=== PATIENT | male | born 1985 | race Caucasian/White ===

== ENCOUNTER 2017-07-07 18:47 | Emergency (ER) | payer MEDICAID, SELFPAY ==
[2017-07-07 18:48] VITALS: BP 154/92; PULSE 95; RESP 20; TEMP 36.6; O2SAT 100; BMI 27.8
[2017-07-07 19:03] VITALS: BMI 28.0
--- NOTE | 2017-07-07 19:20 | XR_ITS ---
XR chest portable HISTORY: ITS.REASON: chest pain ORDERING PHYSICIAN: Babita Willard MD PATIENT AGE: 31 years COMPARISON: None available FINDINGS: The cardiomediastinal silhouette and pulmonary vascularity are within normal limits. The lungs are clear without infiltrates, suspicious nodules, or pleural effusions. No acute bony abnormalities. IMPRESSION: Negative chest, no acute finding
--- NOTE | 2017-07-07 19:20 | [facility].EDCP ---
ED Disposition Condition on Discharge: Good Time of Disposition: 20:08 - Critical Care Critical Care Time: No <Babita Willard - Last Filed: 07/07/17 19:56> Condition on Discharge: Good Time of Disposition: 21:30 - Critical Care Critical Care Time: No <Seven Coffman - Last Filed: 07/08/17 01:15> Clinical Impression: Atypical chest pain Disposition: Home, Self-Care Instructions: DI for Atypical Chest Pain Additional Instructions: Please follow up with Dr Field within the next 24 hrs for mandatory outpatient re-evaluation!!! Referrals: Dc Mcclain [Primary Care Provider] - Andrew Field MD [Consulting Physician] - Attestation: On 07/07/17, the high probability of a clinically significant, sudden or life threatening deterioration of the following system(s) required my full and direct attention, intervention and personal management. The time I documented below is in addition to time spent performing reported procedures but includes the following listed in this critical care notation. Medical Decision Making - Radiology Data #1 Image(s): Chest Image Reviewed: Yes I reviewed the patient's radiology image Preliminary Findings: Normal/NAD, No Infiltrates Seen, Normal Lung Inflation Aaron (central calcification on left but neg acute noted; nl cardiac silhouette), Normal Heart Size - ECG Data Tracing #1 I reviewed this ECG and interpreted as documented below: ECG initial impression date: 07/07/17 ECG initial impression time: 18:55 Normal Sinus Rhythm: Yes - [place] Inquiry Pt receiving controlled substance: No <Babita Willard - Last Filed: 07/07/17 19:56> - Medical Records Medical records reviewed: Yes: I reviewed the patient's medical records. - Lab Data Lab results reviewed: Yes: I reviewed the patient's lab results. Result diagrams: 07/07/17 19:25 07/07/17 19:25 - Reevaluation(s) Time: 21:20 <Seven Coffman - Last Filed: 07/08/17 01:15> Vital Signs: 07/07/17 18:48 07/07/17 21:20 Temperature 98 F 98.8 F Temperature Source Oral Oral Pulse Rate 77 Pulse Rate [Right Radial] 95 H Respiratory Rate 20 16 Blood Pressure 138/80 Blood Pressure [Right Arm] 154/92 Blood Pressure Mean [Right Arm] 112 Blood Pressure Source Automatic Cuff Blood Pressure Source [Right Arm] Automatic Cuff Blood Pressure Position Sitting Blood Pressure Position [Right Arm] Supine 02 Sat by Pulse Oximetry 100 Oxygen Delivery Method Room Air Room Air - Lab Data Lab Results 07/07/17 19:25: WBC 8.4, RBC 5.99, Hgb 17.6, Hct 52.7 H, MCV 88.0, MCH 29.4, MCHC 33.4, RDW 12.8, Plt Count 216, MPV 7.5, Neut % (Auto) 56.7, Lymph % (Auto) 35.9, [place] % (Auto) 5.2, Eos % (Auto) 1.5, Baso % (Auto) 0.6, Neut # (Auto) 4.8, Lymph # (Auto) 3.0, [place] # (Auto) 0.4, Eos # (Auto) 0.1, Baso # (Auto) 0.1 07/07/17 19:25: Sodium 142, Potassium 4.3, Chloride 106, Carbon Dioxide 30, Anion Gap 10.3, BUN 8, Creatinine 0.96, Estimated Creat Clear 146, Estimated GFR 93, Est GFR ( Amer) 112, Glucose 105, Calcium 8.6, Total Bilirubin 0.4, AST 17, ALT 48, Alkaline Phosphatase 66, Total Creatine Kinase 152, CK-MB (CK-2) 0.6, CK-MB (CK-2) Rel Index 0.4, Troponin I < 0.02, Total Protein 7.4, Albumin 4.0, Globulin 3.4 H, Albumin/Globulin Ratio 1.2 - Reevaluation(s) Reevaluation #1: Upon reevaluation the patient appears medically stable, asleep, in no acute distress. When confronted with his history of drug abuse the patient stated clearly that he has been drug-free since being released from the rehab unit. Advise patient of results obtained, instructed to follow-up with Dr. Jourdan Panda within the next few days. The dad Keith to see Dr. Field, in [place]. (Seven Coffman) Chest Pain HPI - General Mode of Arrival: Ambulatory Source of Information: Patient, Parent(s) Limitations: No Limitations Description of Symptoms (Recalled from ER Triage Doc. by RN): PT STATES HE HAS BEEN HAVING CHEST PAIN OFF AND O
[2017-07-07 19:48] LABS: Basophils # 0.1 K/mm3 (0-0.2); Basophils % 0.6 % (0.1-2.0); Eosinophils # 0.1 K/mm3 (0.0-0.4); Eosinophils % 1.5 % (0.1-12.0); Hematocrit 52.7 % (42.0-52.0); Hemoglobin 17.6 g/dL (14.1-18.0); Lymphocytes % 35.9 K/mm3 (10-50); Mean Corpuscular HGB Conc 33.4 g/dL (31.8-35.4); Mean Corpuscular Hemoglobin 29.4 pg (27.0-31.2); Mean Platelet Volume 7.5 fl (7.4-10.4); Monocytes # 0.4 K/mm3 (0.1-1.0); Monocytes % 5.2 % (1.7-9.3); Neutrophils # 4.8 K/mm3 (1.8-7.8); Neutrophils % 56.7 % (37.0-80.0); Platelet Count 216 K/mm3 (142-424); Red Blood Count 5.99 M/mm3 (4.60-6.20); Red Cell Distribution Width 12.8 % (11.5-17.5); White Blood Count 8.4 K/mm3 (4.8-10.8)
[2017-07-07 20:30] LABS: Albumin/Globulin Ratio 1.2 (1.1-1.8); Alkaline Phosphatase 66 U/L (46-116); Anion Gap 10.3 mEq/L (5-15); Aspartate Amino Transferase 17 U/L (15-37); Bilirubin,Total 0.4 mg/dL (0.2-1.0); Blood Urea Nitrogen 8 mg/dL (7-18); CKMB Relative Index 0.4 U/L (0-4.0); Calcium 8.6 mg/dL (8.5-10.1); Carbon Dioxide 30 mmol/L (21.0-32.0); Chloride 106 mmol/L (98-107); Creatine Kinase 152 U/L (39-308); Creatine Kinase MB 0.6 mg/ml (0.0-3.6); Creatinine Clearance Estimated 146 mL/min (0-300); Creatinine,Serum 0.96 mg/dL (0.70-1.30); Estimated Glomerular Filt Rate 93 ml/min (>60); GFR (African American) 112 ML/MIN (>60); Globulin 3.4 gm/dl (1.3-3.2); Glucose 105 mg/dL (74-106); Potassium 4.3 mmoL/L (3.5-5.1); Sodium 142 mmol/L (136-145); Total Protein,Serum 7.4 gm/dL (6.4-8.2); Troponin I < 0.02 ng/ml (0.00-0.06)
[2017-07-07 20:44] LABS: Alanine Aminotransferase 48 U/L (12-78)
[2017-07-07 21:20] VITALS: BP 138/80; PULSE 77; RESP 16; TEMP 37.1; O2SAT 100
== END 2017-07-07 21:20 | disposition home or self-care (01) ==
PROVIDERS: Emergency Medicine; Emergency Provider Emergency Medicine; PCP Family Medicine
DX: R07.89 Other chest pain (principal); I10 Essential (primary) hypertension; F17.210 Nicotine dependence, cigarettes, uncomplicated; L50.9 Urticaria, unspecified
CPT/HCPCS: 71045; 80053; 82550; 82553; 84484; 85025; 93005; 99283